=== PATIENT | male | born 2000 | race Caucasian/White ===

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

== ENCOUNTER 2022-02-19 08:00 | Outpatient (CLI) | payer BC, OTHER ==
--- NOTE | 2022-02-19 08:32 | XRAY Report ---
PROCEDURE: Shoulder 3 View RT INDICATIONS: CONTUSION OF RIGHT SHOULDER TECHNIQUE: 3 views of the shoulder were acquired. COMPARISON: None. FINDINGS: Bones: No fractures or dislocations. No suspicious bony lesions. Visualized ribs appear intact. Soft tissues: No suspicious soft tissue calcifications. IMPRESSION: No acute fracture. No osseous lesion. If symptoms and/or clinical suspicion for patholog y continue, further assessment with repeat plain films, or advanced imaging (e.g., CT, MRI, or bone s can) is recommended for further assessment. Reviewed by: Dolly Alas MD on 02/19/2022 8:30 AM PDT Approved by: Dolly Alas MD on 02/19/2022 8:30 AM PDT Station ID: [id number]
== END 2022-02-19 08:01 | disposition home or self-care (01) ==
LOC: DI.S 08:00
PROVIDERS: ATTEND Physician Assistant Medical
DX: S40.011A Contusion of right shoulder, initial encounter (principal)